=== PATIENT | male | born 1940 | race Hispanic/Latino ===

== ENCOUNTER 2017-06-01 11:17 | Inpatient (IN) | payer MEDICARE ==
[2017-06-01] VITALS (17 sets, daily range): BP systolic 131–163; BP diastolic 73–117
[~2017-06-01] VITALS: Ht 170.2 cm; Wt 81.2 kg
[~2017-06-01 11:17] MED LIST: ALLOPURINOL100 MG PO; AMLODIPINE BESYL5 MG PO; ASPIR-TRIN325 MG PO; ATIVAN0.5 MG PO; ATORVASTATIN CA20 MG PO; CEFDINIR300 MG PO; DOXYCYCLINE HY100 MG PO; ELIQUIS PO; ENALAPRIL MALEA20 MG PO; FENOFIBRATE67 MG PO; FUROSEMIDE40 MG PO; HUMULIN N100 UNITS/ SQ; HUMULIN R100 UNIT/2 SC; JANUVIA100 MG PO; LASIX40 MG PO; LEVOTHROID125 MCG PO; LORTAB 7.5-5001 EACH PO; LOSARTAN POTAS100 MG PO; LOVASTATIN40 MG PO; NEXIUM40 MG PO; NIFEDIPINE ER30 M1 PO; NORVASC5 MG PO; PANTOPRAZOLE SO40 MG PO; SOTALOL80 MG PO; ULTRACET TABLE1 EACH PO; ZOFRAN ODT4 MG SL
--- OUTSIDE RECORDS SUMMARY | 2017-06-01 11:20 | XMS REPORT ---
[facility] [place] Address Unknown Phone Unavailable Care Team Providers Care Discharge Planner Name Role Phone BALDEMAR JAMA Unavailable Unavailable Problems This patient has no known problems. Allergies, Adverse Reactions, Alerts This patient has no known allergies or adverse reactions. Medications This patient has no known medications. Results Test Description Test Time Test Comments Text Results Atomic Results Result Comments Stress Test - Treadmill ONLY [place] [id number] Patient Name : FABIAN JOHNSON V MR #: [id number] : 1940 Age/Sex: 76/M Adm Physician : BALDEMAR JAMA MD Admit Date : 01/05/17 Location : MED/SURG Room/Bed : [facility] REPORT: Cardiology Report DATE OF STUDY: January 07, 2017 LEXISCAN MYOVIEW The patient had resting perfusion images after injection of 10.9 mCi of technetium-99M Myoview. Later due to inability to exercise, he is given Lexiscan 0.4 mg intravenously and shortly afterwards 30.6 mCi of technetium-99M Myoview. Perfusion images were taken by rotational tomography. Comparison of resting and Lexiscan stress images show small defects in the inferoseptal and anteroseptal wall both fixed without any evidence of reversibility suggesting scar. There are no other defects to suggest any scar or ischemia. Additionally, gated wall motion images are obtained and there is inferoseptal hypokinesis and calculated ejection fraction is reduced to 40%. FINAL IMPRESSION 1. Abnormal Lexiscan Myoview. 2. Small anteroseptal scar. 3. Small inferoseptal scar. 4. Doubt any active ischemia. 5. Abnormal left ventricular function with mild inferoseptal hypokinesis with ejection fraction 40%. Job#: [id number] cc: RYAN JAMA MD Signature Date Dictated By: BRIDGET LOUISE MD Transcribed By: ADAM on 01/07/17 < Electronically signed by BRIDGET LOUISE MD><<Signature on File>>01/11/17 [id number] COPY TO: CHEST SINGLE (PORTABLE) [place] [address] Patient Name: FABIAN JOHNSON V MR #: [id number] : 1940 Age/Sex: 76/M Req #: [id number] Adm Physician: BALDEMAR JAMA MD Ordered by: JUAN TINSLEY MD Report #: [id number] Location: ICU Room/Bed: ICU [facility] Procedure: [id number] DX/CHEST SINGLE (PORTABLE) Exam Date: 01/06/17 Exam Time: 0520 REPORT STATUS: Signed CHEST SINGLE (PORTABLE), 01/06/2017 7:00 AM Technique: CHEST SINGLE (PORTABLE) Comparison: 01/05/2017 Clinical history: Congestive heart failure Findings: See Impression Impression: Motion artifact 1. Stable cardiomegaly status post sternotomy. 2. Improved edema with probable small effusions. Signed by: Dr Liz Schroeder MD on 01/06/2017 6:32 AM Dictated By: LIZ SCHROEDER MD 0632 Transcribed By: FADIA on 01/06/17 0632 COPY TO: JUAN TINSLEY MD CHEST SINGLE (PORTABLE) [place] [address] Patient Name: FABIAN JOHNSON V MR #: [id number] : 1940 Age/Sex: 76/M Req #: [id number] Adm Physician: Ordered by: JUAN TINSLEY MD Report #: [id number] Location: ER Room/Bed: Procedure: [id number] DX/CHEST SINGLE (PORTABLE) Exam Date: 01/05/17 Exam Time: 929 REPORT STATUS: Signed PROCEDURE: CHEST SINGLE (PORTABLE) COMPARISON: 07/07/2016. INDICATIONS: TROUBLE BREATHING FINDINGS: Moderate enlargement of the cardiac silhouette with postsurgical changes in the mediastinum. Small bilateral pleural effusions with prominence of the pulmonary interstitium. No acute osseous abnormality. CONCLUSION: Cardiomegaly with interstitial pulmonary edema and small bilateral pleural effusions. Dictated by: Dimitry Orta M.D. on 01/05/2017 at 10:07 Electronically approved by: Dimitry Orta M.D. on 01/05/2017 at 10:07 Dictated By : DIMITRY ORTA MD 1007 Transcribed By: MARYANNE on 01/05/17 1007 COPY TO: JUAN TINSLEY MD
[2017-06-01] MEDS ORDERED: ALBUTEROL SULF 0.083% NEB SOLN 3 ML NEB NEB STA (11:26)
[2017-06-01] MEDS ORDERED: IPRATROPIUM BROMIDE 0.02% 2.5 ML NEB NEB STA (11:26)
[2017-06-01] MEDS ORDERED: SODIUM CHLORIDE 0.9% 1000ML 1,000 ML IV STA (11:26)
--- NOTE | 2017-06-01 12:19 | Diagnostic Imaging Report ---
PROCEDURE: CHEST SINGLE (PORTABLE) COMPARISON: 01/06/2017. INDICATIONS: SOB FINDINGS: The lungs are well-inflated. No focal consolidation or pneumothorax. Stable enlargement of the cardiomediastinal contour with postsurgical changes in the mediastinum. Prominence of the pulmonary interstitium is noted, along with small bilateral pleural effusions. No acute osseous abnormalities. CONCLUSION: Cardiomegaly with interstitial pulmonary edema and small bilateral pleural effusions. Dictated by: Isaías Pollack M.D. on 06/01/2017 at 12:18 Electronically approved by: Isaías Pollack M.D. on 06/01/2017 at 12:18
[2017-06-01 12:27] LABS: BASOPHILS % 0.5 % (0.0-1.0); BILIRUBIN,URINE NEGATIVE (NEGATIVE); EOSINOPHILS # (AUTO) 0.1 (0.0-0.4); EOSINOPHILS % 1.4 % (0.0-6.0); HEMATOCRIT 28.8 % (38.2-49.6); HEMOGLOBIN 9.2 g/dL (14.0-18.0); KETONES,URINE NEGATIVE (NEGATIVE); LEUKOCYTE ESTERASE ,URINE NEGATIVE (NEGATIVE); LYMPHOCYTES # (AUTO) 0.9 (1.0-3.2); LYMPHOCYTES % 13.8 % (18.0-39.1); MEAN CORPUSCULAR HEMOGLOBIN 27.8 pg (28-32); MEAN CORPUSCULAR HGB CONC 31.9 g/dL (31-35); MONOCYTES # (AUTO) 0.4 (0.2-0.8); MONOCYTES % 5.9 % (4.4-11.3); NEUTROPHILS # (AUTO) 5.1 (2.1-6.9); NEUTROPHILS % 78.1 % (38.7-80.0); NITRITE,URINE NEGATIVE (NEGATIVE); PLATELET COUNT 259 x10e3/uL (140-360); RED BLOOD COUNT 3.31 x10e6/uL (4.3-5.7); URINE UROBILINOGEN 0.2 mg/dL (0.2 - 1)
[2017-06-01] MEDS ORDERED: HYDROCODONE/APAP 5MG-325MG TAB PO ONE (12:30)
[2017-06-01 12:39] LABS: INR 1.62; PROTHROMBIN TIME 18.1 seconds (11.9-14.5)
[2017-06-01 12:40] LABS: PARTIAL THROMBOPLASTIN TIME 38.4 seconds (23.8-35.5)
[2017-06-01 12:45] LABS: CLARITY,URINE HAZY (CLEAR); COLOR,URINE YELLOW (YELLOW); PROTEIN,URINE DIPSTICK 2+ (NEGATIVE)
[2017-06-01 12:53] LABS: ALBUMIN 3.2 g/dL (3.5-5.0); ALBUMIN/GLOBULIN RATIO 0.7 (0.8-2.0); ANION GAP 15.6 mmol/L (8-16); CALCIUM 9.1 mg/dL (8.4-10.2); CREATININE, SERUM 3.56 mg/dL (0.72-1.25); POTASSIUM 3.6 mmol/L (3.5-5.1)
[2017-06-01 12:56] LABS: B-TYPE NATRIURETIC PEPTIDE2 3076.5 pg/mL (0-100)
[2017-06-01] MEDS ORDERED: SODIUM CHLORIDE FLUSH 10 ML SYR INJ PRN (13:00)
[2017-06-01 13:01] LABS: CREATINE KINASE MB 22.6 ng/mL (0.00-5.00)
[2017-06-01 13:05] LABS: WBC,URINE (MAN) 0-5 /HPF (0-5)
[2017-06-01 13:37] LABS: ABG HCO3 23 mmol/L (23-28); ABG PCO2 30 mmHg (41-51); ABG PO2 72 mmHg (80-105)
[2017-06-01] MEDS ORDERED: ELIQUIS PO (15:04)
[2017-06-01] MEDS: FUROSEMIDE INJ 10 MG/ML 4 ML VIAL IV SCH (15:30)
[2017-06-01] MEDS ORDERED: DEXTROSE 50% SYRINGE 50 ML IV PRN ×2 (16:15→23:45)
[2017-06-01 16:53] LABS: CREATINE KINASE MB 17.6 ng/mL (0.00-5.00)
[2017-06-01] MEDS ORDERED: APIXAB 2.5 MG TABLET PO SCH ×2 (17:00→23:50)
--- NOTE | 2017-06-01 21:28 | Consultation ---
DATE OF CONSULTATION: June 01, 2017 Thank you so much for asking me to see this nice man again in consultation. Mr. Doshi is a complex and elderly 76-year-old man with multiple medical problems who presents to the emergency room today with a complaint of shortness of breath. HISTORY OF PRESENT ILLNESS: The patient and his tell me that he ran out of his furosemide about 2 weeks ago and now for the last 2 weeks he has been increasingly short of breath. The report that they visited in Dr. Botello's office yesterday who got some furosemide called into a local pharmacy instead of the mail order and he picked up some last evening, but has not been able to feel adequately improved. He denies any chest pain or palpitations. PAST MEDICAL HISTORY: Long and complex including recent hospitalization at [facility] in December 2016 with advanced kidney failure with BUN 72 and creatinine 3.7 at that time with him refusing to start dialysis. He had Cardiolite performed December 2016 that showed small inferoseptal scar without significant ischemia and EF of about 40%. PAST SURGICAL HISTORY: He had coronary artery bypass graft surgery in June 2003 with severe, complex coronary artery disease at the time. He had his first episode of atrial fibrillation after he had cholecystectomy in 2011, but has now become chronic atrial fibrillation. He had open cholecystectomy on February. He had left total knee replacement in May of 2003 and appendectomy in 1979. RECENT HOME MEDICATIONS: Fenofibrate 67 mg once a day, furosemide 40 mg twice a day, which he ran out of as above, allopurinol 100 mg daily, nifedipine ER 60 mg daily, levothyroxine 125 mcg daily. Humulin 50/50 15 units twice a day and Eliquis 2.5 mg twice a day. Atorvastatin 20 mg daily. PERSONAL/SOCIAL HISTORY: Does not smoke or drink and lives with his . ALLERGIES: PENICILLIN. FAMILY HISTORY: His father at 74 after coronary bypass graft surgery. Mother at 61 with stroke and renal failure. PHYSICAL EXAMINATION: GENERAL: Shows an obese man who is alert and responsive and somewhat short of breath. HEENT: Relatively unremarkable. THORAX: There is healed midline sternotomy. HEART: Sounds S1 S2 are equal but irregularly irregular and no distinct murmur. LUNGS: Have bibasilar crackles. ABDOMEN: Protuberant and slightly tense, possibly fluid wave. EXTREMITIES: 1+ pretibial edema. PERTINENT LABORATORY DATA: BUN 67, creatinine 3.56 with glomerular filtration rate calculated at 17 mL per minute. Glucose 185, potassium 3.6. His total CPK is 260 with the upper limit being normal of 200. CK-MB is 22.6 with the upper limit of normal being 5, and 5% of the total would be 13. His troponin I is markedly elevated at 7.56. Hemoglobin 9.2, hematocrit 28.8. White count 6.47. BNP 3076. Urinalysis shows 2+ protein and granular casts. Blood gas shows pH 7.50, pCO2 30 and pO2 72. ASSESSMENT: 1. Volume overload. 2. Advanced kidney failure. 3. Medication noncompliance, running out furosemide 2 weeks ago. 4. Type 2 adult onset diabetes. 5. Hypertension. 6. Complex coronary disease with abnormal cardiac enzymes. 7. Hyperlipidemia. PLAN: Agree with switching his Lasix to intravenous administration. Will monitor his overall status. His prognosis is guarded. I have discussed this with the patient and his at the bedside, noting the fact that he had his coronary bypass graft surgery 14 years ago. Thank you for asking me to see him in consultation. Job#: [id number] GH
[2017-06-01] MEDS ORDERED: ZANTAC150 MG PEG (21:48)
[2017-06-01] MEDS ORDERED: FISH OIL 1,0001 EAC2 PO (21:59)
[2017-06-01] MEDS ORDERED: LASIX40 MG PO (22:23)
[2017-06-01] MEDS ORDERED: ROBAXIN-750750 MG PO (22:28)
[2017-06-01] MEDS ORDERED: TRAMADOL/APAP 37.5MG-325MG TAB PO PRN (23:45)
[2017-06-01] MEDS ORDERED: METHOCARBAMOL 750 MG TAB PO PRN (23:45)
[2017-06-01] MEDS: ALLOPURINOL 100 MG TAB PO SCH (23:59)
[2017-06-01] MEDS: INSULIN LISPRO 100 UNIT/1 ML 3ML VIAL SQ SCH (23:59)
[2017-06-01] MEDS: NIFEDIPINE CR 30 MG TAB PO SCH (23:59)
[2017-06-02] VITALS (27 sets, daily range): BP systolic 105–155; BP diastolic 56–94
[2017-06-02] MEDS ORDERED: ALLOPURINOL 100 MG TAB ONE (00:03)
[2017-06-02 01:13] LABS: CREATINE KINASE MB 10.8 ng/mL (0.00-5.00)
[2017-06-02 05:59] LABS: BASOPHILS % 0.3 % (0.0-1.0); EOSINOPHILS # (AUTO) 0.1 (0.0-0.4); EOSINOPHILS % 1.8 % (0.0-6.0); HEMOGLOBIN 8.4 g/dL (14.0-18.0); LYMPHOCYTES # (AUTO) 0.9 (1.0-3.2); LYMPHOCYTES % 13.3 % (18.0-39.1); MEAN CORPUSCULAR HEMOGLOBIN 27.5 pg (28-32); MEAN CORPUSCULAR HGB CONC 31.1 g/dL (31-35); MEAN CORPUSCULAR VOLUME 88.2 fL (81-99); MONOCYTES # (AUTO) 0.5 (0.2-0.8); MONOCYTES % 6.6 % (4.4-11.3); NEUTROPHILS # (AUTO) 5.3 (2.1-6.9); NEUTROPHILS % 77.7 % (38.7-80.0); PLATELET COUNT 221 x10e3/uL (140-360); RED BLOOD COUNT 3.06 x10e6/uL (4.3-5.7); RED CELL DISTRIBUTION WIDTH 15.1 % (11.7-14.4)
[2017-06-02] MEDS: LEVOTHYROXINE SODIUM 125 MCG TAB PO SCH (06:14)
[2017-06-02 06:24] LABS: CREATINE KINASE MB 8.8 ng/mL (0.00-5.00)
[2017-06-02 06:26] LABS: ANION GAP 17.5 mmol/L (8-16); CALCIUM 8.7 mg/dL (8.4-10.2); CREATININE, SERUM 3.35 mg/dL (0.72-1.25); POTASSIUM 3.5 mmol/L (3.5-5.1)
[2017-06-02] MEDS ORDERED: INSULIN REGULAR, HUMAN 100 UNIT/1 ML 3ML VIAL SQ SCH (08:00)
[2017-06-02] MEDS ORDERED: NIFEDIPINE CR 30 MG TAB PO SCH (09:00)
[2017-06-02] MEDS ORDERED: FUROSEMIDE 40 MG TAB PO SCH (09:00)
[2017-06-02] MEDS: INSULIN LISPRO 100 UNIT/1 ML 3ML VIAL SQ SCH ×4 (09:21→20:49)
[2017-06-02] MEDS: FAMOTIDINE 20 MG TAB PEG SCH (09:23)
[2017-06-02] MEDS: APIXAB 2.5 MG TABLET PO SCH ×2 (09:23→16:25)
[2017-06-02] MEDS: ATORVASTATIN 20 MG TAB PO SCH (09:23)
[2017-06-02] MEDS: FUROSEMIDE INJ 10 MG/ML 4 ML VIAL IV SCH ×2 (09:23→16:25)
[2017-06-02] MEDS: OMEGA 3 POLYUNSAT FATTY ACIDS 1000 MG SOFTGEL PO SCH ×2 (09:24→16:26)
[2017-06-02] MEDS: FENOFIBRATE 48 MG TAB PO SCH (09:24)
[2017-06-02] MEDS: NIFEDIPINE CR 30 MG TAB PO SCH ×2 (09:24→16:25)
[2017-06-02 15:12] LABS: % IRON SATURATION 4 % (15-50); IRON 15 ug/dL (65-175); TOTAL IRON BINDING CAPACITY 379 ug/dL (261-478); TRANSFERRIN 271 mg/dL (174-364)
--- NOTE | 2017-06-02 15:31 | Consultation ---
DATE OF CONSULTATION: June 02, 2017 HISTORY OF PRESENT ILLNESS: Mr. Hany Doshi is known to me. He is a pleasant, 76- -year-old gentleman with underlying history of hypothyroidism, type 2 diabetes, diabetic nephropathy, CKD-4, underlying hypertension, atherosclerotic cardiovascular disease, status post open heart surgery. ALLERGIES: PENICILLIN. SOCIAL HISTORY: Does not smoke or drink. Family history is significant for hypertension, presented with congestive heart failure, very will diuresed and now feels remarkably better, sitting up and in no apparent distress. CURRENT MEDICATIONS: Allopurinol 100 mg once a day. Eliquis 2.5 mg once a day. Allopurinol 1 mg at bedtime. Atorvastatin 40 mg daily. He is on Pepcid 20 mg daily. Tricor 48 mg p.o. daily. Furosemide 48 mg IV b.i.d. Insulin. Levothyroxine 125 mcg p.o. daily. Nifedipine 60 mg p.o. b.i.d. [place] 3 fatty acid. Tramadol p.r.n. For dose schedule please see MAR. SOCIAL HISTORY: Does not smoke or drink. Has a very supportive . FAMILY HISTORY: Significant for hypertension and type 2 diabetes. PHYSICAL EXAMINATION: GENERAL: Awake, alert and lying supine. No apparent distress. VITALS: Blood pressure of 130/60, pulse rate 80. HEAD AND NECK: Cornea clear. Mucosa dry. LUNGS: Occasional bibasilar rales. HEART: S1 and S2 audible. ABDOMEN: Otherwise soft and nontender. LOWER EXTREMITY EXAMINATION: Shows no edema. IMPRESSION: 1. Congestive heart failure. 2. Hojhx-vs-gvlksvf kidney failure. 3. Anemia of chronic kidney disease. PLAN: Rule out iron deficiency anemia. I will obtain stool guaiacs and iron profile. Hemoglobin last 9.8. Potassium 3.5. Creatinine 3.35. Troponin I of 4.2. Repeat 3.6. Continue with Lasix. Please see orders. Job#: [id number] GH
[2017-06-02] MEDS: EPOETIN ALFA 10000 UNIT/ML VIAL SC NR ×2 (16:31→16:44)
[2017-06-02] MEDS ORDERED: ARTIFICIAL TEARS (OPTH) 15 ML BTL OU PRN (19:15)
[2017-06-02] MEDS: NYSTATIN SUSPENSION 5 ML UDC PO SCH (20:47)
[2017-06-02] MEDS: ALLOPURINOL 100 MG TAB PO SCH (20:47)
[2017-06-02] MEDS ORDERED: ALLOPURINOL 100 MG TAB PO SCH (21:00)
[2017-06-02] MEDS: LORAZEPAM 0.5 MG TAB PO PRN ×2 (22:53)
[2017-06-03] VITALS (7 sets, daily range): BP systolic 124–131; BP diastolic 65–83
[2017-06-03] MEDS: LEVOTHYROXINE SODIUM 125 MCG TAB PO SCH (06:08)
[2017-06-03] MEDS: NYSTATIN SUSPENSION 5 ML UDC PO SCH ×3 (06:08→13:00)
[2017-06-03 07:59] LABS: ALBUMIN 2.8 g/dL (3.5-5.0); ALBUMIN/GLOBULIN RATIO 0.6 (0.8-2.0); ANION GAP 17.1 mmol/L (8-16); CALCIUM 8.6 mg/dL (8.4-10.2); CREATININE, SERUM 3.74 mg/dL (0.72-1.25); POTASSIUM 4.1 mmol/L (3.5-5.1)
[2017-06-03] MEDS: INSULIN LISPRO 100 UNIT/1 ML 3ML VIAL SQ SCH ×4 (08:30→20:55)
[2017-06-03] MEDS: OMEGA 3 POLYUNSAT FATTY ACIDS 1000 MG SOFTGEL PO SCH ×2 (09:00→17:00)
[2017-06-03] MEDS: FAMOTIDINE 20 MG TAB PEG SCH (09:00)
[2017-06-03] MEDS: FUROSEMIDE INJ 10 MG/ML 4 ML VIAL IV SCH ×2 (09:00→17:00)
[2017-06-03] MEDS: NIFEDIPINE CR 30 MG TAB PO SCH ×2 (09:00→17:00)
[2017-06-03] MEDS: FENOFIBRATE 48 MG TAB PO SCH (09:00)
[2017-06-03] MEDS: APIXAB 2.5 MG TABLET PO SCH ×2 (09:00→17:00)
[2017-06-03] MEDS: ATORVASTATIN 20 MG TAB PO SCH (09:00)
[2017-06-03] MEDS: TERAZOSIN HCL 1 MG CAP PO SCH (20:54)
[2017-06-03] MEDS: ALLOPURINOL 100 MG TAB PO SCH (20:54)
[2017-06-03] MEDS: LORAZEPAM 0.5 MG TAB PO PRN (21:29)
[2017-06-04] VITALS (7 sets, daily range): BP systolic 120–143; BP diastolic 71–85
[2017-06-04] MEDS ORDERED: FUROSEMIDE 40 MG TAB PO SCH (06:00)
[2017-06-04] MEDS: LEVOTHYROXINE SODIUM 125 MCG TAB PO SCH (06:13)
[2017-06-04] MEDS: INSULIN LISPRO 100 UNIT/1 ML 3ML VIAL SQ SCH ×4 (08:00→22:22)
[2017-06-04] MEDS: APIXAB 2.5 MG TABLET PO SCH ×2 (08:30→17:00)
[2017-06-04] MEDS: ATORVASTATIN 20 MG TAB PO SCH (08:30)
[2017-06-04] MEDS: FAMOTIDINE 20 MG TAB PEG SCH (08:30)
[2017-06-04] MEDS: OMEGA 3 POLYUNSAT FATTY ACIDS 1000 MG SOFTGEL PO SCH ×2 (08:30→17:00)
[2017-06-04] MEDS: FENOFIBRATE 48 MG TAB PO SCH (08:30)
[2017-06-04] MEDS: NIFEDIPINE CR 30 MG TAB PO SCH ×2 (08:30→17:00)
[2017-06-04 08:50] LABS: ALBUMIN 2.7 g/dL (3.5-5.0); ALBUMIN/GLOBULIN RATIO 0.6 (0.8-2.0); ANION GAP 15.9 mmol/L (8-16); CALCIUM 8.6 mg/dL (8.4-10.2); CREATININE, SERUM 4.12 mg/dL (0.72-1.25); POTASSIUM 3.9 mmol/L (3.5-5.1)
[2017-06-04] MEDS: ALLOPURINOL 100 MG TAB PO SCH (21:50)
[2017-06-04] MEDS: TERAZOSIN HCL 1 MG CAP PO SCH (21:50)
[2017-06-05 00:46] VITALS: BP 121/86
[2017-06-05 04:50] VITALS: BP 140/99
[2017-06-05] MEDS: LEVOTHYROXINE SODIUM 125 MCG TAB PO SCH (06:11)
[2017-06-05] MEDS: INSULIN LISPRO 100 UNIT/1 ML 3ML VIAL SQ SCH ×3 (08:00→16:30)
[2017-06-05 08:18] LABS: ANION GAP 15.9 mmol/L (8-16); CALCIUM 8.7 mg/dL (8.4-10.2); CREATININE, SERUM 3.9 mg/dL (0.72-1.25); PHOSPHORUS 4.6 MG/DL (2.3-4.7); POTASSIUM 3.9 mmol/L (3.5-5.1)
[2017-06-05 08:53] VITALS: BP 149/64
[2017-06-05] MEDS ORDERED: FUROSEMIDE 40 MG TAB PO SCH (09:00)
[2017-06-05] MEDS: FAMOTIDINE 20 MG TAB PEG SCH (09:00)
[2017-06-05] MEDS: OMEGA 3 POLYUNSAT FATTY ACIDS 1000 MG SOFTGEL PO SCH ×2 (09:00→17:00)
[2017-06-05] MEDS: FENOFIBRATE 48 MG TAB PO SCH (09:00)
[2017-06-05] MEDS: APIXAB 2.5 MG TABLET PO SCH ×2 (09:00→17:00)
[2017-06-05] MEDS: NIFEDIPINE CR 30 MG TAB PO SCH ×2 (09:00→17:00)
[2017-06-05] MEDS: ATORVASTATIN 20 MG TAB PO SCH (09:00)
[2017-06-05 11:56] VITALS: BP 135/97
[2017-06-05 16:23] VITALS: BP 112/66
== END 2017-06-05 17:31 | disposition home or self-care (01) | DRG 291 ==
LOC: ER 11:17 → ERHOLD 12:46 → EDBEDREQTM 14:45 → EDBEDREQSVC 14:45 → ERHOLD 18:34 → ICU 18:34 → MED/SURG3 06-02 17:46
DX: I13.0 Hypertensive heart and chronic kidney disease with heart failure and stage 1 through stage 4 chronic kidney disease, or unspecified chronic kidney disease (principal); I50.23 Acute on chronic systolic (congestive) heart failure; N18.4 Chronic kidney disease, stage 4 (severe); N17.9 Acute kidney failure, unspecified; I48.91 Unspecified atrial fibrillation; E11.22 Type 2 diabetes mellitus with diabetic chronic kidney disease; I25.2 Old myocardial infarction; I25.10 Atherosclerotic heart disease of native coronary artery without angina pectoris; Z91.14 Patient's other noncompliance with medication regimen; D50.9 Iron deficiency anemia, unspecified; E03.9 Hypothyroidism, unspecified; Z95.1 Presence of aortocoronary bypass graft; D63.1 Anemia in chronic kidney disease; Z87.891 Personal history of nicotine dependence; Z79.52 Long term (current) use of systemic steroids
CPT/HCPCS: 36415; 36600; 71045; 80048; 80053; 81001; 82550; 82553; 82728; 82805; 82948; 83540; 83605; 83880; 84100; 84466; 84484; 85025; 85610; 85730; 87086; 87400; 93005; 93306; 94640; 99284; J1940; J7030; Q4081

== ENCOUNTER 2017-07-18 14:11 | Inpatient (IN) | payer MEDICARE ==
[~2017-07-18] VITALS: Ht 170.2 cm; Wt 74.4 kg
[~2017-07-18 14:11] MED LIST changes: +FISH OIL 1,0001 EAC2 PO; +ROBAXIN-750750 MG PO; +ZANTAC150 MG PEG
--- NOTE | 2017-07-18 15:18 | Diagnostic Imaging Report ---
PROCEDURE:CHEST 2 VIEWS TECHNIQUE:PA and lateral chest INDICATION:Shortness of breath; bilateral leg edema COMPARISON:[facility], DX, CHEST SINGLE (PORTABLE), 06/01/2017, 12:08. FINDINGS: Bilateral lower lobe alveolar opacities with small pleural effusions, cardiomegaly and postoperative sequela of CABG. Enlarged central vasculature. Intact skeleton. CONCLUSION: Pulmonary edema, pleural effusions and cardiomegaly in keeping with congestive heart failure. Dictated by: Ang Suarez M.D. on 07/18/2017 at 15:19 Electronically approved by: Ang Suarez M.D. on 07/18/2017 at 15:19
[2017-07-18] MEDS ORDERED: FUROSEMIDE INJ 10 MG/ML 4 ML VIAL IV ONE (16:15)
[2017-07-18 16:33] LABS: BASOPHILS % 0.2 % (0.0-1.0); EOSINOPHILS # (AUTO) 0.1 (0.0-0.4); EOSINOPHILS % 0.9 % (0.0-6.0); HEMATOCRIT 28.5 % (38.2-49.6); HEMOGLOBIN 9.3 g/dL (14.0-18.0); LYMPHOCYTES # (AUTO) 0.7 (1.0-3.2); LYMPHOCYTES % 10.8 % (18.0-39.1); MEAN CORPUSCULAR HEMOGLOBIN 27.3 pg (28-32); MEAN CORPUSCULAR HGB CONC 32.6 g/dL (31-35); MEAN CORPUSCULAR VOLUME 83.6 fL (81-99); MONOCYTES # (AUTO) 0.3 (0.2-0.8); MONOCYTES % 3.8 % (4.4-11.3); NEUTROPHILS # (AUTO) 5.6 (2.1-6.9); NEUTROPHILS % 83.8 % (38.7-80.0); PLATELET COUNT 251 x10e3/uL (140-360); RED BLOOD COUNT 3.41 x10e6/uL (4.3-5.7)
[2017-07-18 16:39] LABS: INR 1.67; PROTHROMBIN TIME 18.5 seconds (11.9-14.5)
[2017-07-18 16:46] LABS: ALBUMIN 3.3 g/dL (3.5-5.0); ALBUMIN/GLOBULIN RATIO 0.6 (0.8-2.0); ANION GAP 18.4 mmol/L (8-16); CALCIUM 9.4 mg/dL (8.4-10.2); CREATININE, SERUM 3.52 mg/dL (0.72-1.25); POTASSIUM 4.4 mmol/L (3.5-5.1)
[2017-07-18 16:56] LABS: CREATINE KINASE MB 1.7 ng/mL (0-5.0)
[2017-07-18] MEDS ORDERED: SODIUM CHLORIDE FLUSH 10 ML SYR INJ PRN (17:15)
[2017-07-18] MEDS ORDERED: ASPIRIN 81 MG CHEW TAB PO ONE (17:15)
[2017-07-18] MEDS ORDERED: LASIX40 MG PO (22:13)
[2017-07-18] MEDS ORDERED: LORAZEPAM0.5 MG PO (22:13)
[2017-07-19 00:48] LABS: BILIRUBIN,URINE NEGATIVE (NEGATIVE); CLARITY,URINE CLEAR (CLEAR); COLOR,URINE YELLOW (YELLOW); KETONES,URINE NEGATIVE (NEGATIVE); LEUKOCYTE ESTERASE ,URINE NEGATIVE (NEGATIVE); NITRITE,URINE NEGATIVE (NEGATIVE); PROTEIN,URINE DIPSTICK TRACE (NEGATIVE); URINE UROBILINOGEN 0.2 mg/dL (0.2 - 1)
[2017-07-19 01:04] LABS: BACTERIA,URINE FEW /HPF; EPITHELIAL CELLS,URINE RARE /LPF; RBC,URINE 0-5 /HPF (0-5); WBC,URINE (MAN) 0-5 /HPF (0-5)
[2017-07-19 01:09] LABS: CREATINE KINASE MB 1.7 ng/mL (0-5.0)
--- NOTE | 2017-07-19 06:33 | Diagnostic Imaging Report ---
EXAMINATION: CHEST SINGLE (PORTABLE) INDICATION: CHF COMPARISON: 07/18/2017 FINDINGS: TUBES and LINES: None. LUNGS: Lungs are not well inflated. There are worsening bibasilar atelectasis. There is worsening perihilar interstitial opacities, consistent with interstitial edema. PLEURA: Bilateral pleural effusions are stable. HEART AND MEDIASTINUM: Cardiac size is severely enlarged. There are atherosclerotic calcifications within the aorta. BONES AND SOFT TISSUES: No acute osseous lesion. Soft tissues are unremarkable. UPPER ABDOMEN: No free air under the diaphragm. IMPRESSION: Worsening of cardiogenic pulmonary edema and stable bilateral pleural effusions Signed by: Dr. Santhosh Reynolds M.D. on 07/19/2017 6:29 AM
[2017-07-19 07:53] LABS: BASOPHILS % 0.3 % (0.0-1.0); EOSINOPHILS # (AUTO) 0.1 (0.0-0.4); EOSINOPHILS % 1.8 % (0.0-6.0); HEMATOCRIT 26.5 % (38.2-49.6); HEMOGLOBIN 8.6 g/dL (14.0-18.0); LYMPHOCYTES # (AUTO) 0.9 (1.0-3.2); LYMPHOCYTES % 13.2 % (18.0-39.1); MEAN CORPUSCULAR HEMOGLOBIN 27.4 pg (28-32); MEAN CORPUSCULAR HGB CONC 32.5 g/dL (31-35); MEAN CORPUSCULAR VOLUME 84.4 fL (81-99); MONOCYTES # (AUTO) 0.3 (0.2-0.8); MONOCYTES % 4.4 % (4.4-11.3); NEUTROPHILS # (AUTO) 5.2 (2.1-6.9); NEUTROPHILS % 79.7 % (38.7-80.0); PLATELET COUNT 202 x10e3/uL (140-360); RED BLOOD COUNT 3.14 x10e6/uL (4.3-5.7)
[2017-07-19 08:09] LABS: ANION GAP 13.5 mmol/L (8-16); CREATININE, SERUM 3.39 mg/dL (0.72-1.25); POTASSIUM 3.5 mmol/L (3.5-5.1)
[2017-07-19 08:16] LABS: CREATINE KINASE MB 1.8 ng/mL (0-5.0)
[2017-07-19] MEDS ORDERED: FUROSEMIDE INJ 10 MG/ML 4 ML VIAL IV ONE (08:45)
[2017-07-19] MEDS ORDERED: FENOFIBRATE MICRONIZED 67 MG PO SCH (09:00)
[2017-07-19] MEDS ORDERED: [UNRECOGNIZED DRUG - OTHER] PO SCH (09:00)
[2017-07-19] MEDS ORDERED: ATORVASTATIN 20 MG TAB PO SCH (09:00)
[2017-07-19] MEDS ORDERED: FUROSEMIDE 40 MG TAB PO SCH (09:00)
[2017-07-19] MEDS ORDERED: FISH OIL PO SCH (09:00)
[2017-07-19] MEDS ORDERED: OMEGA PO SCH (09:00)
[2017-07-19] MEDS ORDERED: FATTY ACIDS PO SCH (09:00)
[2017-07-19] MEDS ORDERED: NON-FORMULARY MEDICATION ([Eliquis] 2.5 MG) PO SCH (09:00)
[2017-07-19] MEDS: LORAZEPAM 0.5 MG TAB PO PRN ×2 (09:19→17:20)
[2017-07-19] MEDS: FENOFIBRATE 48 MG TAB PO SCH (09:33)
[2017-07-19] MEDS: OMEGA 3 POLYUNSAT FATTY ACIDS 1000 MG SOFTGEL PO SCH ×2 (09:33→17:00)
[2017-07-19] MEDS: NIFEDIPINE CR 30 MG TAB PO SCH ×2 (09:33→17:00)
[2017-07-19] MEDS: APIXAB 2.5 MG TABLET PO SCH ×2 (10:20→17:00)
[2017-07-19 10:46] LABS: CREATININE,URINE RANDOM 95.95 mg/dL (63-166); TOTAL PROTEIN, URINE 68.6 mg/dL (1-14)
--- NOTE | 2017-07-19 10:52 | Consultation ---
DATE OF CONSULTATION: July 19, 2017 HISTORY OF PRESENT ILLNESS: This is a 76-year-old gentleman who came in with worsening swelling of lower extremity. He has an existing history of chronic kidney disease stage 3, history of diabetic nephropathy, history of coronary artery disease with ejection fraction around 40% to 45%, type-2 diabetes with end-organ damage with diabetic nephropathy, retinopathy and neuropathy, history of hypertension, history of congestive heart failure, history of hyperlipidemia, history of gout. CURRENT REVIEW OF SYSTEMS: Admits to shortness of breath and dyspnea on exertion. Denies fever, chills and cough. ALLERGIES: PENICILLIN. CURRENT MEDICATIONS 1. Allopurinol 100 mg p.o. each bedtime. 2. Eliquis 2.5 mg p.o. b.i.d. 3. Aspirin 81 mg once a day. 4. Atorvastatin 40 mg daily. 5. TriCor 48 mg daily. 6. Lasix 40 mg p.o. b.i.d. Received 80 mg Lasix IV once. 7. Levothyroxine 125 mcg p.o. daily. 8. Lorazepam p.r.n. anxiety. 9. Procardia 60 mg p.o. b.i.d. XL. 10. [place]-3 fatty acid. SOCIAL HISTORY: Does not smoke or drink. FAMILY HISTORY: Significant for type-2 diabetes and hypertension. CHEST X-RAY: Please see official report. Shows worsening cardiogenic pulmonary edema. LABS: White count 6.5 and hemoglobin 8.6 with a potassium 3.5, bicarbonate 24, creatinine 3.39. PHYSICAL EXAMINATION GENERAL: Awake, alert, lying supine. No apparent distress. VITALS: Blood pressure of 117/72, pulse rate 90, afebrile. HEAD AND NECK: Corneas are clear. Oral mucosa dry. Neck veins flat. LUNGS: Bibasilar rales. HEART: S1 and S2 audible. Questionable S3 gallop. No rubs. ABDOMEN: Otherwise soft and nontender. LOWER EXTREMITIES: Shows 2+ edema. IMPRESSION AND PLAN 1. Evidence of congestive heart failure, fluid overload, third-spacing edema. 2. Underlying tnepy-kj-swqbxks kidney failure with diabetic nephropathy. 3. Chronic kidney disease, stage 3, with acute kidney injury component. Plan on placing BETZAIDA hoses. Will obtain spot urine wgibmzh-mx-yorotojkvv ratio. Diurese patient with IV Lasix. Discontinue p.o. Lasix and start Lasix 60 mg IV q.6. Strict intake and output. Salt and water restriction. Please see orders. Job#: [id number]
[2017-07-19] MEDS: FUROSEMIDE INJ 10 MG/ML 4 ML VIAL IV SCH ×2 (13:34→17:21)
[2017-07-19 16:18] VITALS: BP 148/95
[2017-07-19 16:25] VITALS: BP 148/95
[2017-07-19 16:31] VITALS: BP 148/95
[2017-07-19 16:34] VITALS: BP 142/80
[2017-07-19] MEDS: ALLOPURINOL 100 MG TAB PO SCH (20:19)
[2017-07-19] MEDS: ATORVASTATIN 40 MG TAB PO SCH (20:19)
[2017-07-19 21:35] VITALS: BP 164/96
[2017-07-20 01:29] VITALS: BP 152/72
[2017-07-20 05:48] VITALS: BP 136/80
[2017-07-20] MEDS: FUROSEMIDE INJ 10 MG/ML 4 ML VIAL IV SCH ×4 (06:17→18:25)
[2017-07-20] MEDS: LEVOTHYROXINE SODIUM 125 MCG TAB PO SCH (06:17)
[2017-07-20 07:10] LABS: ALBUMIN 2.8 g/dL (3.5-5.0); ALBUMIN/GLOBULIN RATIO 0.7 (0.8-2.0); ANION GAP 15.2 mmol/L (8-16); CREATININE, SERUM 3.43 mg/dL (0.72-1.25); POTASSIUM 3.2 mmol/L (3.5-5.1)
[2017-07-20] MEDS: APIXAB 2.5 MG TABLET PO SCH ×2 (08:45→17:44)
[2017-07-20] MEDS: NIFEDIPINE CR 30 MG TAB PO SCH ×2 (08:45→17:45)
[2017-07-20] MEDS: FENOFIBRATE 48 MG TAB PO SCH (08:45)
[2017-07-20] MEDS: OMEGA 3 POLYUNSAT FATTY ACIDS 1000 MG SOFTGEL PO SCH ×2 (08:45→17:44)
[2017-07-20 09:00] VITALS: BP 145/76
[2017-07-20 12:00] VITALS: BP 135/73
[2017-07-20] MEDS: ACETAMINOPHEN 325 MG TAB PO PRN (13:08)
[2017-07-20] MEDS ORDERED: POTASSIUM CHLORIDE 20MEQ/100ML 200 ML IV ONE (13:30)
[2017-07-20] MEDS ORDERED: SODIUM CHLORIDE 0.9% 250ML 250 ML ONE (14:19)
[2017-07-20] MEDS: LORAZEPAM 0.5 MG TAB PO PRN ×2 (14:43)
[2017-07-20 16:00] VITALS: BP 129/79
[2017-07-20] MEDS ORDERED: DEXTROSE 50% SYRINGE 50 ML IV PRN (16:45)
[2017-07-20 20:00] VITALS: BP 137/76
[2017-07-20] MEDS: ATORVASTATIN 40 MG TAB PO SCH (20:20)
[2017-07-20] MEDS: ALLOPURINOL 100 MG TAB PO SCH (20:20)
[2017-07-20] MEDS: INSULIN REGULAR, HUMAN 100 UNIT/1 ML 3ML VIAL SQ SCH (21:00)
[2017-07-21] VITALS: BP 120/69
[2017-07-21] MEDS: FUROSEMIDE INJ 10 MG/ML 4 ML VIAL IV SCH ×4 (00:31→18:15)
[2017-07-21] MEDS: LORAZEPAM 0.5 MG TAB PO PRN (00:32)
[2017-07-21 04:00] VITALS: BP 126/62
[2017-07-21] MEDS: LEVOTHYROXINE SODIUM 125 MCG TAB PO SCH (05:43)
[2017-07-21 06:55] LABS: ALBUMIN 2.8 g/dL (3.5-5.0); ALBUMIN/GLOBULIN RATIO 0.7 (0.8-2.0); ANION GAP 14.5 mmol/L (8-16); CREATININE, SERUM 3.64 mg/dL (0.72-1.25); POTASSIUM 3.5 mmol/L (3.5-5.1)
[2017-07-21 07:53] VITALS: BP 127/82
[2017-07-21] MEDS: INSULIN REGULAR, HUMAN 100 UNIT/1 ML 3ML VIAL SQ SCH ×4 (08:00→22:15)
[2017-07-21] MEDS: OMEGA 3 POLYUNSAT FATTY ACIDS 1000 MG SOFTGEL PO SCH ×2 (09:00→17:18)
[2017-07-21] MEDS: NIFEDIPINE CR 30 MG TAB PO SCH ×2 (09:00→17:18)
[2017-07-21] MEDS: FENOFIBRATE 48 MG TAB PO SCH (09:00)
[2017-07-21] MEDS: APIXAB 2.5 MG TABLET PO SCH ×2 (09:00→17:18)
[2017-07-21 11:50] VITALS: BP 139/98
[2017-07-21 16:06] VITALS: BP 113/70
[2017-07-21] MEDS: ATORVASTATIN 40 MG TAB PO SCH (22:15)
[2017-07-21] MEDS: ALLOPURINOL 100 MG TAB PO SCH (22:15)
[2017-07-22] MEDS: LORAZEPAM 1 MG TAB PO PRN ×2 (00:12→11:06)
[2017-07-22] MEDS: FUROSEMIDE INJ 10 MG/ML 4 ML VIAL IV SCH ×5 (00:19→18:00)
[2017-07-22] MEDS: LEVOTHYROXINE SODIUM 125 MCG TAB PO SCH (05:31)
[2017-07-22] MEDS: INSULIN REGULAR, HUMAN 100 UNIT/1 ML 3ML VIAL SQ SCH ×4 (07:30→21:00)
[2017-07-22 08:00] VITALS: BP 113/70
[2017-07-22 08:06] VITALS: BP 148/56
[2017-07-22] MEDS: NIFEDIPINE CR 30 MG TAB PO SCH ×2 (09:00→16:43)
[2017-07-22] MEDS: FENOFIBRATE 48 MG TAB PO SCH (09:00)
[2017-07-22] MEDS: APIXAB 2.5 MG TABLET PO SCH ×2 (09:00→16:43)
[2017-07-22] MEDS: OMEGA 3 POLYUNSAT FATTY ACIDS 1000 MG SOFTGEL PO SCH ×2 (09:00→16:43)
[2017-07-22] MEDS ORDERED: LIDOCAINE HCL 2% LOCAL 20 ML VIAL ONE (11:03)
[2017-07-22] MEDS ORDERED: SODIUM CHLORIDE 0.9% 500ML 1,000 ML ONE (11:03)
[2017-07-22] MEDS ORDERED: FENTANYL CITRATE/PF 100MCG/2 ML INJ ONE (11:45)
[2017-07-22 11:47] LABS: CREATININE,URINE RANDOM 48.25 mg/dL (63-166); TOTAL PROTEIN, URINE 27.7 mg/dL (1-14)
[2017-07-22 12:01] LABS: DURATION, URINE COLLECTION 24 hrs
[2017-07-22 12:03] LABS: CREATININE 24 HOUR,URINE 676 mg/24hr (800-2000); TOTAL PROTEIN 24HR, URINE 387.8 mg/24hr (50-100); TOTAL VOLUME, URINE 1400 ml/24hr (800-2000)
[2017-07-22] MEDS ORDERED: FENTANYL CITRATE/PF 100MCG/2 ML INJ IV ONE (12:15)
[2017-07-22 12:34] VITALS: BP 125/69
[2017-07-22 15:46] VITALS: BP 125/69
[2017-07-22] MEDS ORDERED: MANNITOL 25% 12.5GM/50 ML VIAL IV PRN (16:00)
[2017-07-22] MEDS ORDERED: HEPARIN SOD (PORCINE) 1000 UNIT/ML SDV IV PRN (16:00)
[2017-07-22] MEDS ORDERED: SODIUM CHLORIDE 0.9% 250ML 500 ML IV PRN (16:00)
[2017-07-22] MEDS ORDERED: SODIUM CHLORIDE 0.9% 1000ML 2,000 ML IV PRN (16:00)
[2017-07-22 16:19] VITALS: BP 137/71
--- NOTE | 2017-07-22 16:33 | Diagnostic Imaging Report ---
Tunneled Dialysis Catheter Placement 07/22/2017 Pre-Procedure Diagnosis: End-Stage Renal Disease Post-procedure Diagnosis:End-Stage Renal Disease Environmental Health Sanitarian: Jenn Suarez Employment Services Director: None Sedation: None. Intravenous fentanyl was administered for pain control. Heart rate, rhythm and oxygen saturation were monitored and real-time by dedicated interventional radiology nursing under my direct supervision. Blood pressure was monitored and 5 minute increments. 1% lidocaine was used for local anesthesia. Radiation Dose: 155 cGycm2 (Dose Area Product) Fluoroscopy time: 0.4 minutes Estimate blood loss: <5 mL Blood administered: None Complications: None Implants/Grafts: 16 [place] 23 cm cuffed tunneled dialysis catheter Specimen: None Procedure: Informed consent was obtained and the patient positioned supine in the fluoroscopy suite. A timeout was performed, followed by preliminary ultrasound of the right internal jugular vein (see findings below). The right neck and chest were prepped and draped in standard fashion. Using real-time ultrasound guidance a 18 gauge vascular needle was used to access the right internal jugular vein. An image was stored in the electronic medical record. A wire was advanced across the right atrium under fluoroscopy and the needle exchanged for a peel-away sheath. A skin incision was made inferior to the clavicle and the catheter tunneled to the access site. The catheter was then deployed through the peel-away sheath and positioned with the tip at the atriocaval junction/right atrium. At the end of the procedure the catheter was flushed, packed with heparin solution, secured to the skin and a sterile dressing applied. The patient tolerated the procedure well and without immediate complication. Findings: Patent right internal jugular vein as demonstrated by normal ultrasound compressibility. Impression: Successful placement of a tunneled right internal jugular vein dialysis catheter using ultrasound and fluoroscopic guidance under moderate sedation. This report was generated with voice-recognition technology. Errors in cook helper juice can occur. Please interpret accordingly and contact a radiologist if there are any questions regarding the report. Catheter Signed by: Dr. Ang Suarez M.D. on 07/22/2017 4:29 PM
[2017-07-22 20:13] VITALS: BP 139/77
[2017-07-22] MEDS: ALLOPURINOL 100 MG TAB PO SCH (21:47)
[2017-07-22] MEDS: ATORVASTATIN 40 MG TAB PO SCH (21:47)
[2017-07-23] VITALS (8 sets, daily range): BP systolic 120–166; BP diastolic 62–95
[2017-07-23] MEDS: FUROSEMIDE INJ 10 MG/ML 4 ML VIAL IV SCH ×5 (00:58→23:59)
[2017-07-23] MEDS: LORAZEPAM 1 MG TAB PO PRN ×3 (01:01→16:48)
[2017-07-23] MEDS: LEVOTHYROXINE SODIUM 125 MCG TAB PO SCH (06:00)
[2017-07-23 06:31] LABS: BASOPHILS % 0.4 % (0.0-1.0); EOSINOPHILS # (AUTO) 0.1 (0.0-0.4); HEMATOCRIT 26.6 % (38.2-49.6); HEMOGLOBIN 8.7 g/dL (14.0-18.0); LYMPHOCYTES # (AUTO) 0.8 (1.0-3.2); MEAN CORPUSCULAR HEMOGLOBIN 27.1 pg (28-32); MEAN CORPUSCULAR HGB CONC 32.7 g/dL (31-35); MEAN CORPUSCULAR VOLUME 82.9 fL (81-99); MONOCYTES # (AUTO) 0.3 (0.2-0.8); MONOCYTES % 5.9 % (4.4-11.3); NEUTROPHILS # (AUTO) 4.4 (2.1-6.9); NEUTROPHILS % 77.2 % (38.7-80.0); PLATELET COUNT 208 x10e3/uL (140-360); RED BLOOD COUNT 3.21 x10e6/uL (4.3-5.7)
[2017-07-23 06:50] LABS: ANION GAP 13.3 mmol/L (8-16); CREATININE, SERUM 2.82 mg/dL (0.72-1.25); POTASSIUM 3.3 mmol/L (3.5-5.1)
[2017-07-23] MEDS: INSULIN REGULAR, HUMAN 100 UNIT/1 ML 3ML VIAL SQ SCH ×4 (07:30→20:46)
[2017-07-23] MEDS: APIXAB 2.5 MG TABLET PO SCH ×2 (09:00→17:00)
[2017-07-23] MEDS: OMEGA 3 POLYUNSAT FATTY ACIDS 1000 MG SOFTGEL PO SCH ×2 (09:00→17:00)
[2017-07-23] MEDS: NIFEDIPINE CR 30 MG TAB PO SCH ×2 (09:00→17:00)
[2017-07-23] MEDS: FENOFIBRATE 48 MG TAB PO SCH (09:00)
[2017-07-23] MEDS ORDERED: POTASSIUM CHLORIDE 10 MEQ TABCR PO ONE (14:30)
[2017-07-23] MEDS: ATORVASTATIN 40 MG TAB PO SCH (20:47)
[2017-07-23] MEDS: ALLOPURINOL 100 MG TAB PO SCH (20:47)
[2017-07-23] MEDS: GUAIFENESIN/CODEINE 10 ML CUP PO PRN (20:48)
[2017-07-24] VITALS (10 sets, daily range): BP systolic 123–165; BP diastolic 50–80
[2017-07-24] MEDS: LORAZEPAM 1 MG TAB PO PRN
[2017-07-24] MEDS: GUAIFENESIN/CODEINE 10 ML CUP PO PRN ×2 (01:24→09:29)
[2017-07-24] MEDS: LEVOTHYROXINE SODIUM 125 MCG TAB PO SCH (06:00)
[2017-07-24] MEDS: FUROSEMIDE INJ 10 MG/ML 4 ML VIAL IV SCH ×3 (06:00→17:34)
[2017-07-24] MEDS: INSULIN REGULAR, HUMAN 100 UNIT/1 ML 3ML VIAL SQ SCH ×4 (07:30→20:41)
[2017-07-24 07:47] LABS: BASOPHILS % 0.3 % (0.0-1.0); EOSINOPHILS # (AUTO) 0.1 (0.0-0.4); HEMATOCRIT 27.1 % (38.2-49.6); HEMOGLOBIN 8.6 g/dL (14.0-18.0); LYMPHOCYTES % 16.1 % (18.0-39.1); MEAN CORPUSCULAR HGB CONC 31.7 g/dL (31-35); MEAN CORPUSCULAR VOLUME 85.2 fL (81-99); MONOCYTES # (AUTO) 0.4 (0.2-0.8); MONOCYTES % 6.3 % (4.4-11.3); NEUTROPHILS # (AUTO) 4.5 (2.1-6.9); NEUTROPHILS % 74.8 % (38.7-80.0); PLATELET COUNT 209 x10e3/uL (140-360); RED BLOOD COUNT 3.18 x10e6/uL (4.3-5.7); RED CELL DISTRIBUTION WIDTH 17.3 % (11.7-14.4)
[2017-07-24 08:26] LABS: ALBUMIN 2.7 g/dL (3.5-5.0); ALBUMIN/GLOBULIN RATIO 0.6 (0.8-2.0); ANION GAP 12.7 mmol/L (8-16); CALCIUM 8.8 mg/dL (8.4-10.2); CREATININE, SERUM 2.41 mg/dL (0.72-1.25); POTASSIUM 3.7 mmol/L (3.5-5.1)
[2017-07-24] MEDS: APIXAB 2.5 MG TABLET PO SCH ×2 (08:37→16:19)
[2017-07-24] MEDS: OMEGA 3 POLYUNSAT FATTY ACIDS 1000 MG SOFTGEL PO SCH ×2 (08:37→16:19)
[2017-07-24] MEDS: FENOFIBRATE 48 MG TAB PO SCH (08:38)
[2017-07-24] MEDS: NIFEDIPINE CR 30 MG TAB PO SCH ×2 (09:00→16:19)
[2017-07-24] MEDS: ACETAMINOPHEN 325 MG TAB PO PRN ×2 (12:46→20:12)
[2017-07-24] MEDS: ALLOPURINOL 100 MG TAB PO SCH (20:40)
[2017-07-24] MEDS: ATORVASTATIN 40 MG TAB PO SCH (20:40)
[2017-07-25 00:48] VITALS: BP 113/63
[2017-07-25] MEDS: LEVOTHYROXINE SODIUM 125 MCG TAB PO SCH (06:01)
[2017-07-25] MEDS: FUROSEMIDE INJ 10 MG/ML 4 ML VIAL IV SCH ×3 (06:01→10:34)
[2017-07-25 06:03] VITALS: BP 138/82
[2017-07-25 06:30] LABS: BASOPHILS % 0.4 % (0.0-1.0); EOSINOPHILS # (AUTO) 0.1 (0.0-0.4); EOSINOPHILS % 1.9 % (0.0-6.0); HEMATOCRIT 26.4 % (38.2-49.6); HEMOGLOBIN 8.4 g/dL (14.0-18.0); LYMPHOCYTES # (AUTO) 0.9 (1.0-3.2); LYMPHOCYTES % 16.4 % (18.0-39.1); MEAN CORPUSCULAR HEMOGLOBIN 26.6 pg (28-32); MEAN CORPUSCULAR HGB CONC 31.8 g/dL (31-35); MEAN CORPUSCULAR VOLUME 83.5 fL (81-99); MONOCYTES # (AUTO) 0.4 (0.2-0.8); MONOCYTES % 6.7 % (4.4-11.3); NEUTROPHILS # (AUTO) 4.2 (2.1-6.9); NEUTROPHILS % 74.1 % (38.7-80.0); PLATELET COUNT 209 x10e3/uL (140-360); RED BLOOD COUNT 3.16 x10e6/uL (4.3-5.7); RED CELL DISTRIBUTION WIDTH 17.2 % (11.7-14.4)
[2017-07-25 06:49] LABS: ANION GAP 13.7 mmol/L (8-16); CALCIUM 8.7 mg/dL (8.4-10.2); CREATININE, SERUM 2.64 mg/dL (0.72-1.25); POTASSIUM 3.7 mmol/L (3.5-5.1)
[2017-07-25] MEDS: INSULIN REGULAR, HUMAN 100 UNIT/1 ML 3ML VIAL SQ SCH ×5 (07:21→21:45)
[2017-07-25 07:30] LABS: FERRITIN 236.91 ng/mL (21.81-274.66)
[2017-07-25 08:00] VITALS: BP 141/98
[2017-07-25] MEDS: OMEGA 3 POLYUNSAT FATTY ACIDS 1000 MG SOFTGEL PO SCH ×2 (08:28→17:24)
[2017-07-25] MEDS: FENOFIBRATE 48 MG TAB PO SCH (08:28)
[2017-07-25] MEDS: APIXAB 2.5 MG TABLET PO SCH ×2 (08:28→17:24)
[2017-07-25] MEDS: NIFEDIPINE CR 30 MG TAB PO SCH ×2 (09:00→17:24)
[2017-07-25] MEDS: LORAZEPAM 1 MG TAB PO PRN ×2 (09:22)
[2017-07-25 12:00] VITALS: BP 133/79
[2017-07-25 16:00] VITALS: BP 135/88
[2017-07-25] MEDS: FUROSEMIDE 40 MG TAB PO SCH (17:24)
[2017-07-25 20:21] VITALS: BP 122/87
[2017-07-25] MEDS: ALLOPURINOL 100 MG TAB PO SCH (21:45)
[2017-07-25] MEDS: ATORVASTATIN 40 MG TAB PO SCH (21:45)
[2017-07-26] VITALS: BP 131/74
[2017-07-26] MEDS: LORAZEPAM 1 MG TAB PO PRN (00:24)
[2017-07-26 04:00] VITALS: BP 119/81
[2017-07-26] MEDS: FUROSEMIDE 40 MG TAB PO SCH (05:27)
[2017-07-26] MEDS: LEVOTHYROXINE SODIUM 125 MCG TAB PO SCH (05:27)
[2017-07-26] MEDS: INSULIN REGULAR, HUMAN 100 UNIT/1 ML 3ML VIAL SQ SCH ×2 (07:30→11:30)
[2017-07-26] MEDS: NIFEDIPINE CR 30 MG TAB PO SCH (08:01)
[2017-07-26] MEDS: FENOFIBRATE 48 MG TAB PO SCH (08:01)
[2017-07-26] MEDS: OMEGA 3 POLYUNSAT FATTY ACIDS 1000 MG SOFTGEL PO SCH (08:01)
[2017-07-26 08:30] VITALS: BP 158/97
[2017-07-26 08:42] VITALS: BP 158/97
[2017-07-26] MEDS ORDERED: EPOETIN ALFA 10000 UNIT/ML VIAL SC SCH (09:00)
[2017-07-26] MEDS ORDERED: IRON SUCROSE 100 MG in SODIUM CHLORIDE 0.9% 100 ML 100 ML IV SCH (10:00)
[2017-07-26] MEDS ORDERED: LORAZEPAM1 MG PO (11:57)
== END 2017-07-26 12:10 | disposition home or self-care (01) | DRG 291 ==
LOC: ER 14:56 → ERHOLD 17:20 → MED/SURG2 07-19 15:43
PROC: 0JH63XZ Insertion of Tunneled Vascular Access Device into Chest Subcutaneous Tissue and Fascia, Percutaneous Approach (ICD-10-PCS; principal; 2017-07-22)
PROC: 5A1D70Z Performance of Urinary Filtration, Intermittent, Less than 6 Hours Per Day (ICD-10-PCS; 2017-07-22)
DX: I13.2 Hypertensive heart and chronic kidney disease with heart failure and with stage 5 chronic kidney disease, or end stage renal disease (principal); I50.43 Acute on chronic combined systolic (congestive) and diastolic (congestive) heart failure; N18.6 End stage renal disease; N17.9 Acute kidney failure, unspecified; E11.21 Type 2 diabetes mellitus with diabetic nephropathy; E11.42 Type 2 diabetes mellitus with diabetic polyneuropathy; E86.0 Dehydration; D63.1 Anemia in chronic kidney disease; I48.2 Chronic atrial fibrillation; E78.5 Hyperlipidemia, unspecified; R79.89 Other specified abnormal findings of blood chemistry; I25.10 Atherosclerotic heart disease of native coronary artery without angina pectoris; E11.22 Type 2 diabetes mellitus with diabetic chronic kidney disease; E11.319 Type 2 diabetes mellitus with unspecified diabetic retinopathy without macular edema; Z88.0 Allergy status to penicillin; Z95.1 Presence of aortocoronary bypass graft; F41.9 Anxiety disorder, unspecified
CPT/HCPCS: 36415; 36565; 71045; 71046; 74470; 77001; 80048; 80053; 81001; 81050; 82550; 82553; 82570; 82575; 82728; 82948; 83540; 83880; 84156; 84466; 84484; 85025; 85610; 85730; 86704; 86706; 87340; 93005; 93306; 96372; 99284; C1751; C1769; J1644; J1756; J1940; J2001; J2150; J3480; J7030; J7040; J7050; Q4081

== ENCOUNTER → 2017-10-31 | Outpatient (CLI) | payer MEDICARE ==
[~2017-10-31] MED LIST changes: +LORAZEPAM0.5 MG PO; +LORAZEPAM1 MG PO
--- NOTE | 2017-10-31 15:27 | Diagnostic Imaging Report ---
PROCEDURE:HAND RIGHT 3 VIEWS AP \T\ LAT COMPARISON:None. INDICATIONS:RIGHT HAND PAIN FINDINGS: There are no fractures, dislocations, lytic or blastic lesions. Demineralization, especially in the periarticular regions. Interphalangeal osteoarthritic changes. Vascular calcifications. The soft-tissues are unremarkable. CONCLUSION: No acute fracture or dislocation of the right hand. Interphalangeal osteoarthritic changes. Dictated by: Harsh Lopez M.D. on 10/31/2017 at 15:31 Electronically approved by: Harsh Lopez M.D. on 10/31/2017 at 15:31
== END ==
LOC: RAD 14:12
DX: M79.641 Pain in right hand (principal); R60.9 Edema, unspecified; M79.89 Other specified soft tissue disorders; E11.9 Type 2 diabetes mellitus without complications

== ENCOUNTER 2018-11-13 15:01 | Outpatient (RCR) | payer MEDICARE | END 2018-11-15 | LOC: PT 15:01 | PROVIDERS: ATTEND Specialist | DX: M16.12 Unilateral primary osteoarthritis, left hip (principal); M71.552 Other bursitis, not elsewhere classified, left hip ==

== ENCOUNTER 2018-11-22 15:00 | Outpatient (RCR) | payer MEDICARE | END 2018-12-16 | LOC: PT 15:00 | PROVIDERS: ATTEND Specialist | DX: M16.12 Unilateral primary osteoarthritis, left hip (principal); M71.552 Other bursitis, not elsewhere classified, left hip; M62.81 Muscle weakness (generalized); M54.5 Low back pain ==

== ENCOUNTER 2019-03-05 12:23 | Emergency (ER) | payer MEDICARE ==
[~2019-03-05] VITALS: Ht 167.6 cm; Wt 87.3 kg
--- NOTE | 2019-03-05 13:21 | Diagnostic Imaging Report ---
EXAMINATION: CXR 2 VIEW - HOPD INDICATION: Shortness of breath COMPARISON: Chest radiograph of 07/19/2017 FINDINGS: LINES/TUBES:None LUNGS:The lungs are hyperinflated. There is perihilar fullness and indistinctness of the pulmonary vasculature. Mild bibasilar patchy opacities. PLEURA:No pleural effusion or pneumothorax. MEDIASTINUM:Cardiomediastinal silhouette is stably enlarged. Atherosclerotic calcifications of the thoracic aorta. BONES/SOFT TISSUES:No acute osseous injury. Sternotomy wires intact. ABDOMEN:No free air under the diaphragm. IMPRESSION: Hyperinflated lungs. Cardiomegaly and pulmonary edema. Signed by: Jacqueline Gupta MD on 03/05/2019 1:17 PM
== END 2019-03-05 13:48 | disposition left against medical advice (07) ==
LOC: FSED 12:23
DX: R06.00 Dyspnea, unspecified (principal); I12.0 Hypertensive chronic kidney disease with stage 5 chronic kidney disease or end stage renal disease; E11.22 Type 2 diabetes mellitus with diabetic chronic kidney disease; N18.6 End stage renal disease; Z99.2 Dependence on renal dialysis; E78.5 Hyperlipidemia, unspecified; F41.9 Anxiety disorder, unspecified; K21.9 Gastro-esophageal reflux disease without esophagitis
CPT/HCPCS: 71046; 80048; 80076; 82553; 83880; 84484; 85025; 93005; 99284

== ENCOUNTER 2019-08-09 11:17 | Emergency (ER) | payer MEDICARE, OTHER ==
[~2019-08-09] VITALS: Ht 167.6 cm; Wt 87.1 kg
--- NOTE | 2019-08-09 11:43 | NUR ---
blood drawn and sent to lab
--- NOTE | 2019-08-09 12:19 | NUR ---
LIMB ALERT PLACED TO LEFT ARM
[2019-08-09 12:23] LABS: ANION GAP 14.6 mmol/L (8-16); CALCIUM 8.8 mg/dL (8.4-10.2); CREATININE, SERUM 5.63 mg/dL (0.72-1.25); POTASSIUM 3.6 mmol/L (3.5-5.1)
== END 2019-08-09 14:06 | disposition home or self-care (01) ==
LOC: ER 11:17
DX: E11.65 Type 2 diabetes mellitus with hyperglycemia (principal); I12.0 Hypertensive chronic kidney disease with stage 5 chronic kidney disease or end stage renal disease; E11.22 Type 2 diabetes mellitus with diabetic chronic kidney disease; N18.6 End stage renal disease; Z99.2 Dependence on renal dialysis; Z79.4 Long term (current) use of insulin; R51 Headache; F41.9 Anxiety disorder, unspecified
CPT/HCPCS: 36415; 80048; 99284